=== PATIENT | female | born 1960 | race Caucasian/White ===

== ENCOUNTER 2018-06-21 19:37 | Emergency (ER) | payer OTHER ==
[2018-06-21] MEDS ORDERED: Amoxicillin/Potassium Clav 875 MG TAB ONE (21:07)
--- NOTE | 2018-06-21 23:06 | RAD ---
CHEST TWO VIEWS: 06/21/18 The heart is normal in size. While there is no major lobar consolidation, there is a little bit of ba silar streaking, even seen on the lateral view. I cannot rule out some minimal basilar infiltrates. T here are no effusions. There is no congestion or edema. IMPRESSION: Minimal basilar streaking which may or may not be significant. POS: HOME
== END 2018-06-21 21:09 | disposition home or self-care (01) ==
LOC: BURERS 19:37
DX: J01.90 Acute sinusitis, unspecified (principal); M19.90 Unspecified osteoarthritis, unspecified site; G43.909 Migraine, unspecified, not intractable, without status migrainosus; K58.9 Irritable bowel syndrome, unspecified; F32.9 Major depressive disorder, single episode, unspecified; I10 Essential (primary) hypertension
CPT/HCPCS: 71046